=== PATIENT | male | born 1980 | race African-American/Black ===

== ENCOUNTER 2021-07-28 15:20 | Emergency (ER) | payer OTHER ==
[~2021-07-28] VITALS: Ht 162.6 cm; Wt 81.8 kg
[2021-07-28 15:25] VITALS: TEMP 98.2
[2021-07-28] MEDS ORDERED: PREDNISONE20 MG PO (16:14)
[2021-07-28] MEDS ORDERED: FLEXERIL 1010 MG/TAB PO (16:14)
[2021-07-28 16:29] VITALS: BP 118/77; PULSE 60
== END 2021-07-28 16:33 | disposition home or self-care (01) ==
LOC: COL.ER 15:20
DX: S39.011A Strain of muscle, fascia and tendon of abdomen, initial encounter (principal); F17.200 Nicotine dependence, unspecified, uncomplicated; X58.XXXA Exposure to other specified factors, initial encounter
CPT/HCPCS: J7512